=== PATIENT | female | born 1990 | race Caucasian/White ===

== ENCOUNTER 2016-12-26 01:35 | Emergency (ER) | payer OTHER ==
[~2016-12-26] VITALS: Ht 167.6 cm; Wt 71.8 kg
[2016-12-26 01:48] VITALS: BP 111/78
--- NOTE | 2016-12-26 01:50 | NUR ---
TO ER BED 6
[2016-12-26 01:53] VITALS: BP 111/78
--- NOTE | 2016-12-26 01:53 | NUR ---
PATIENT PRESENTS TO ED WITH C/O RT EAR PAIN, OFF/ON SINCE AUGUST PT DENIES N/V/D; SKIN IS PINK/WARM/DRY; AAOX4 WITH EVEN AND STEADY GAIT; LUNGS CLEAR BL; HR EVEN AND REGULAR; PT DENIES ANY FEVER, CP, SOB, OR COUGH AT THIS TIME; PATIENT STATES PAIN OF 7/10 AT THIS TIME; VSS; PATIENT POSITIONED FOR COMFORT; HOB ELEVATED; BEDRAILS UP X2; BED DOWN. ER MD MADE AWARE OF PT STATUS.
--- NOTE | 2016-12-26 01:58 | NUR ---
Patient being evaluated by physician at bedside.
--- NOTE | 2016-12-26 03:00 | NUR ---
Patient appears to be resting comfortably in bed. Vital Signs within normal limits. Respirations even and unlabored.
--- NOTE | 2016-12-26 03:00 | NUR ---
ear irrigated with 500ml of normal saline. WAX removed from ear by irrigation. Patient tolerated procedure well.
--- NOTE | 2016-12-26 03:12 | NUR ---
Patient discharged with v/s stable. Written and verbal after care instructions given and explained. Patient alert, oriented and verbalized understanding of instructions. Ambulatory with steady gait. All questions addressed prior to discharge. ID band removed. Patient advised to follow up with PMD. Rx of motrin, dextromethorphan hydrobromide/promethazine and cerumenex otic solution given. Patient educated on indication of medication including possible reaction and side effects. Opportunity to ask questions provided and answered.
== END 2016-12-26 03:12 | disposition home or self-care (01) ==
LOC: MED 01:35
DX: H61.21 Impacted cerumen, right ear (principal); J06.9 Acute upper respiratory infection, unspecified; M79.1 Myalgia
CPT/HCPCS: 99283